=== PATIENT | male | born 1950 | race Caucasian/White ===

== ENCOUNTER 2016-05-07 15:45 | Emergency (ER) | payer MEDICARE, MEDICAID ==
[2016-05-07] VITALS (8 sets, daily range): BP systolic 82–108; BP diastolic 53–74; PULSE 68–86; RESP 10–20; O2SAT 95–99
[~2016-05-07 15:45] MED LIST: HYDR-3825 PO; IBUP-1827 PO; IBUP800T28 PO; METF1000 PO; METH750T3 PO; OXYC5CAP4 PO; PROP20TA5 PO; RIZA10TA23 PO
--- NOTE | 2016-05-07 16:02 | ED.REPORT ---
HPI-Trauma Minor / Fall Date of Service May 07, 2016 ED Provider: Patrica Emanuel MD A 65 year old male with a history of migraines, diabetes, and similar episodes is brought to the ED via EMS due to a ground level fall. The pt states that his "legs just got weak" and he fell before he was able to sit down. The pt states that he hit his face on a wall but denies loss of consciousness. He is now experiencing neck pain, left knee pain, and a headache, as well as fatigue immediately following the fall. The pt denies vision changes, weakness in arms or legs, nausea, or vomiting. Nursing Notes Stated Complaint: GROUND LEVEL FALL Chief Complaint: Multiple Trauma/Fall Nursing Notes Reviewed: Yes Allergies: Coded Allergies: No Known Allergies (Verified , 12/22/15) Scheduled Metformin (Glucophage) 1,000 Mg Tablet 1,000 MG PO BID Propranolol HCl (Propranolol HCl) 20 Mg Tablet 20 MG PO TID Rizatriptan ODT (Maxalt RESEARCH FELLOW) 10 Mg Tablet 10 MG PO every 2 hours Scheduled PRN Hydrocodone-Acetaminophen 7.5-325 mg (Hydrocodone-Acetaminophen 7.5-325 mg) 1 Each Tablet 1 TABLET PO Q6 PRN PRN For Pain Ibuprofen (Ibuprofen) 600 Mg Tablet 600 MG PO TID PRN PRN For Pain Ibuprofen (Ibuprofen) 800 Mg Tablet 800 MG PO TID PRN PRN For Pain Methocarbamol (Methocarbamol) 750 Mg Tablet 750 MG PO BID PRN PRN For Spasm oxyCODONE (oxyCODONE) 5 Mg Capsule 5 MG PO Q4H PRN PRN For Pain General Time Seen by MD: 15:59 Chief Complaint Fall Hx Obtained From: Patient, EMS Arrived By: Ambulance Onset Occurred: 1 - 4 hours ago Symptom Duration: Since onset Recent Healthcare: Recent doctor visit, Recent hospitalization Similar Sx Previous: No Past Medical History Past Medical History Chronic back pain Reports: Diabetes mellitus Reports: Migraines Past Surgical History rotator cuff 2x right ankle surgery Reports: Appendectomy, Tonsillectomy Reports: Back/neck surgery Smoking History Former Smoker Social History Drug Use: Denies drug use Other Social History: Local resident Occupation Followed by the [place] [facility] Status Independent Review of Systems Constitutional: Reports: Fatigue, Weakness - generalized (episodic), Denies: Chills, Fever Respiratory: Denies: Non-productive cough, Shortness of breath Musculoskeletal: Denies: Back pain, Neck pain Skin: Denies Rash Neurologic: Denies: Change LOC, Vision change Complete sys rev & neg: except as marked. Cardiovascular: Denies: Chest pain GI: Denies: Abdominal pain, Nausea, Vomiting Physical Exam Initial Vital Signs Vital Signs (First) Date Time Temp Pulse Resp B/P Pulse Ox O2 Delivery O2 Flow Rate FiO2 05/07/16 15:51 36.4 82 10 108/60 95 Room Air Initial VS: Reviewed, Vital signs abnormal General/Constitutional: Awake, Alert Neck: Atraumatic, Supple, Full range of motion generalized neck tenderness Head / Eyes: Normocephalic, PERRL, EOMI no signs of trauma to scalp no facial droop swelling and bruising to right upper eyelid, otherwise no signs of trauma to face ENT: Atraumatic, Airway patent Mouth: Positive: Mucous membranes dry Respiratory / Chest: Atraumatic, Breath sounds NL, Breath sounds = bilat, No respiratory distress Cardiovascular: Heart rate NL, Regular rhythm, Heart sounds NL Abdomen: Atraumatic, Soft, Non-tender Back: Atraumatic, Full range of motion Upper Extremity / MS: Atraumatic, Full range of motion Lower Extremity / Pelvis / MS: Atraumatic, Full range of motion no obvious deformity of left knee good range of motion no bruising slight swelling Skin: Atraumatic, Color NL, No rash, Warm, Dry Neurologic: Oriented X3, Speech NL, No motor deficits, No sensory deficits neuro grossly intact Psychiatric: Affect NL, Mood NL Interpretation & Diagnostics Lab Results Interpretation Result Diagram: 05/07/16 1701 05/07/16 1701 Test 05/07/16 17:01 White Blood Count 8.8th/mm3 (3.8-10.1) Red Blood Count 4.56mil/mm3 (4.40-5.80) Hemoglobin 15.1g/dL (13.8-17.2) Hematocrit 42.0% (41.0-50.0) Mean Corpuscular Volume 92.1fL (81-100) Mean Corpuscular Hemoglobin 33.1pg (27.0-35.0) Mean Corpuscular Hemoglobin Concent 36.0% (32.0-37.0) Red Cell Distribution Width 13.4% (12.3-15.4) Platelet Count 176bil/L (150-400) Neutrophils (%) (Auto) 60.1% (40-74) Lymphocytes (%) (Auto) 28.5% (14-46) Monocytes (%) (Auto) 7.3% (4-12) Eosinophils (%) (Auto) 3.3% (0-5) Basophils (%) (Auto) 0.6% (0-3) Sodium Level 132mEq/L (134-144) Potassium Level 4.3mEq/L (3.5-5.2) Chloride Level 95mEq/L (97-108) Carbon Dioxide Level 24mmol/L (18-29) Blood Urea Nitrogen 28mg/dL (8-27) Creatinine 0.57mg/dL (0.76-1.27) Estimat Glomerular Filtration Rate 152mL/min (>59) Glucose Level 356mg/dL (60-99) Calcium Level 10.0mg/dL (8.5-10.1) Magnesium Level 1.8mg/dL (1.6-2.6) Hold Ramirez Top Tube Received (Received) X-Ray C-Spine Interpretation IMPRESSION: No fracture. No acute osseous lesion. If there are persistent symptoms or continued clinical suspicion for pathology, then MRI should be considered for further evaluation. Dictated by: Susie Rosales MD, PhD on 05/07/2016 at 17:41 Approved by: Susie Rosales MD, PhD on 05/07/2016 at 17:41 Interpretation / Wet Read by: Interpret - Radiologist X-Ray Interpretation Xray Interpretation: IMPRESSION: No fracture. No acute osseous lesion. If there are persistent symptoms or clinical suspicion for pathology, then repeat radiographs or advanced imaging (CT, MRI or bone scan) should be considered for further evaluation. Dictated by: Susie Rosales MD, PhD on 05/07/2016 at 22:04 Approved by: Susie Rosales MD, PhD on 05/07/2016 at 22:04 X-Ray Ordered: Knee left Interpretation / Wet Read by: Interpret - Radiologist Xray Interpretation: IMPRESSION: No acute fracture. No acute osseous lesion. If there are persistent symptoms or clinical suspicion for pathology, then repeat radiographs or advanced imaging (CT, MRI or bone scan) should be considered for further evaluation. Dictated by: Susie Rosales MD, PhD on 05/07/2016 at 22:06 Approved by: Susie Rosales MD, PhD on 05/07/2016 at 22:06 X-Ray Ordered: Foot left Interpretation / Wet Read by: Interpret - Radiologist Re-Eval/Medical Decision Med Decision/Clinical Course Patient had a near syncopal episode which is likely due to dehydration. The patient is clinically dehydrated and shows prerenal azotemia on his BMP. Is given to half liters of normal saline after which he was no longer orthostatic. In speaking with the patient does not like to drink water he was encouraged to more fluids. We will also likely that he can decrease his blood pressure medication has really does not know what he is on. Upon discharge the patient complained of knee and ankle pain is not B Sabrina has good range of motion however he was very concerned and so x-rays were obtained and no fracture was seen. Source of Hx: Old records Re-Evaluation/Progress #1: Time of Eval: 16:53 Patient Status: Condition unchanged Re-Evaluation/Progress Note: Pt rechecked to reiterate need for IV start. Pt agrees to IV fluids. Re-Evaluation/Progress #2: Time of Eval: 20:30 Patient Status: Condition improved Re-Evaluation/Progress Note: Pt rechecked, whose condition has improved. He is informed of his radiology results and diagnosis, as well as the plan for discharge following the completion of fluids. The pt understands and agrees with the plan. All questions are addressed at this time. Re-Evaluation/Progress #3: Time of Eval: 21:14 Patient Status: Condition unchanged Re-Evaluation/Progress Note: Pt rechecked, who now reports pain in his left knee. Plan for x-ray is discussed. Re-Evaluation/Progress #4: Time of Eval: 22:17 Patient Status: Condition improved Re-Evaluation/Progress Note: Pt rechecked and informed of his radiology results. The plan for discharge is discussed. The pt understands and agrees with the plan. All questions are addressed at this time. Counseled Regarding: Diagnosis, Lab results, Need for follow-up, When/why to return to ED Discharge & Departure Impression: Primary Impression: Near syncope Additional Impression: Dehydration Disposition: Home Discharge Condition All VS Reviewed: Yes Condition: Stable Patient Instructions: Dehydration (ED), Syncope (ED) Additional Instructions: Work on drinking more fluids, even if you do not like the water at your apartment. [facility]. If you are able to cut your dose in half, do that in the meantime. Return to the emergency department if you develop new or worsening symptoms. Referrals: [facility] ([facility]) Scribe Attestation Portions of this note were transcribed by Sheba Kc. I, Dr. Emanuel personally performed the history, physical exam and medical decision-making; I reviewed and confirmed the accuracy of the information in the transcribed note. Signed by: Dante Blanchard, 05/07/2016, 22:20 copies [facility]: [facility] Patrica Emanuel MD May 07, 2016 16:02 SHEBA KC May 07, 2016 16:14
[2016-05-07] MEDS ORDERED: 0.9% Sodium Chloride 1,000 ML IV ONE ×2 (16:45→18:05)
[2016-05-07 17:16] LABS: BASOPHILS % (AUTO) 0.6 % (0-3); EOSINOPHILS % (AUTO) 3.3 % (0-5); MONOCYTES % (AUTO) 7.3 % (4-12); Mean Corpuscular Hemoglobin 33.1 pg (27.0-35.0); Mean Corpuscular Volume 92.1 fL (81-100); NEUTROPHILS % (AUTO) 60.1 % (40-74); Platelet Count 176 bil/L (150-400)
[2016-05-07 17:34] LABS: Magnesium 1.8 mg/dL (1.6-2.6)
--- NOTE | 2016-05-07 17:42 | DRSVH ---
PROCEDURE: X-RAY CERVICAL SPINE, 2 OR 3 VIEWS INDICATIONS: fall TECHNIQUE: 3 view(s) of the cervical spine were acquired. COMPARISON: [facility], CR, XR CERVICAL SPINE 2 OR 3VW, 12/22/2015, 3:01. FINDINGS: Bones: No fractures or dislocations to the C7 level. Cervicothoracic junction is not visualized. The lateral masses of C1 appear intact on the odontoid view. No suspicious bony lesions. Multilevel deg enerative changes. Multilevel facet arthropathy. Soft tissues: No prevertebral soft tissue swelling. Atherosclerotic ossifications noted in the left carotid artery. IMPRESSION: No fracture. No acute osseous lesion. If there are persistent symptoms or continued clin ical suspicion for pathology, then MRI should be considered for further evaluation. Dictated by: Susie Rosales MD, PhD on 05/07/2016 at 17:41 Approved by: Susie Rosales MD, PhD on 05/07/2016 at 17:41
[2016-05-07] MEDS ORDERED: 0.9% Sodium Chloride 500 ML IV ONE (19:30)
--- NOTE | 2016-05-07 22:06 | DRSVH ---
PROCEDURE: X-RAY LEFT KNEE, THREE VIEWS ([id number]) INDICATIONS: fall TECHNIQUE: 3 views of the knee were acquired. COMPARISON: None. FINDINGS: Bones: No fractures or dislocations. No suspicious bony lesions. The tricompartment osteoarthritic degenerative changes are noted. Soft tissues: No joint effusion. Vascular calcifications noted. Chondrocalcinosis noted. IMPRESSION: No fracture. No acute osseous lesion. If there are persistent symptoms or clinical suspi cion for pathology, then repeat radiographs or advanced imaging (CT, MRI or bone scan) should be cons idered for further evaluation. Dictated by: Susie Rosales MD, PhD on 05/07/2016 at 22:04 Approved by: Susie Rosales MD, PhD on 05/07/2016 at 22:04
--- NOTE | 2016-05-07 22:07 | DRSVH ---
PROCEDURE: X-RAY LEFT FOOT COMPLETE, MINIMUM THREE VIEWS ([id number]) INDICATIONS: pain TECHNIQUE: 3 views of the foot were acquired. COMPARISON: None. FINDINGS: Bones: No acute fractures or dislocations. Deformity of distal aspect of fifth metatarsal likely rel ated to fracture which has healed in slight deformity. No suspicious bony lesions. Soft tissues: No tibiotalar joint effusion. Achilles tendon appears normal. IMPRESSION: No acute fracture. No acute osseous lesion. If there are persistent symptoms or clinical suspicion for pathology, then repeat radiographs or advanced imaging (CT, MRI or bone scan) should b e considered for further evaluation. Dictated by: Susie Rosales MD, PhD on 05/07/2016 at 22:06 Approved by: Susie Rosales MD, PhD on 05/07/2016 at 22:06
== END 2016-05-07 22:33 | disposition home or self-care (01) ==
LOC: SED 15:45 → EDBD 15:45 → SED 22:33
DX: R55 Syncope and collapse (principal); W18.39XA Other fall on same level, initial encounter; Y93.89 Activity, other specified; Y92.89 Other specified places as the place of occurrence of the external cause; Y99.8 Other external cause status; E86.0 Dehydration; M54.2 Cervicalgia; M25.562 Pain in left knee; R51 Headache; R53.83 Other fatigue; E11.9 Type 2 diabetes mellitus without complications; Z87.891 Personal history of nicotine dependence; Z79.84 Long term (current) use of oral hypoglycemic drugs
CPT/HCPCS: 36415; 72040; 73562; 73630; 80048; 82948; 83735; 85025; 96360; 96361; 99285; J7030; J7040

== ENCOUNTER 2016-06-02 01:48 | Emergency (ER) | payer MEDICARE, MEDICAID ==
[~2016-06-02] VITALS: Ht 182.9 cm; Wt 84.1 kg
[2016-06-02 02:17] VITALS: BP 123/84; PULSE 100; RESP 18; O2SAT 100
--- NOTE | 2016-06-02 03:14 | ED.REPORT ---
HPI-General Illness Date of Service Jun 02, 2016 ED Provider: Kenny Miguel MD Mr. Hoang is a 65 y/o man who presents today for eye pain and lightheadedness and generalized aching. He hit his head into a wall 3-4 weeks ago. For the past 1 week, he had been cleaning his apartment and refilling a container of bleach cleaning solution when it was being transferred from one container to another. He felt it splash in his face and went immediately into the shower. He now has dry, painful eyes and can't sleep because of it. He was moving things around and now a sharp pain in back and heard a crack and his right knee gave out. He also was wobbling "like I was drunk." He hasn't checked his blood sugar today. Nursing Notes Stated Complaint: EYE PAIN Chief Complaint: General Complaint Allergies: Coded Allergies: No Known Allergies (Verified , 12/22/15) Scheduled Metformin (Glucophage) 1,000 Mg Tablet 1,000 MG PO BID Propranolol HCl (Propranolol HCl) 20 Mg Tablet 20 MG PO TID Rizatriptan ODT (Maxalt FLOWER STRIPPER) 10 Mg Tablet 10 MG PO every 2 hours Scheduled PRN Hydrocodone-Acetaminophen 7.5-325 mg (Hydrocodone-Acetaminophen 7.5-325 mg) 1 Each Tablet 1 TABLET PO Q6 PRN PRN For Pain Ibuprofen (Ibuprofen) 600 Mg Tablet 600 MG PO TID PRN PRN For Pain Ibuprofen (Ibuprofen) 800 Mg Tablet 800 MG PO TID PRN PRN For Pain Methocarbamol (Methocarbamol) 750 Mg Tablet 750 MG PO BID PRN PRN For Spasm oxyCODONE (oxyCODONE) 5 Mg Capsule 5 MG PO Q4H PRN PRN For Pain General Time Seen by MD: 02:53 Chief Complaint Other (eye pain) Hx Obtained From: Patient Arrived By: Walk-in Past Medical History Past Medical History Chronic back pain Reports: Diabetes mellitus Reports: Migraines Past Surgical History rotator cuff 2x right ankle surgery Reports: Appendectomy, Tonsillectomy Reports: Back/neck surgery Smoking History Former Smoker Social History Alcohol Use: Denies alcohol use Drug Use: Denies drug use Other Social History: Local resident Occupation Followed by the [place] [facility] Status Independent Review of Systems Full Review of Systems Eyes: Reports: Blurred bilateral, Eye pain bilateral, Redness bilateral Respiratory: Denies: Shortness of breath Cardiovascular: Denies: Chest pain GI: Denies: Constipation, Diarrhea, Vomiting Male: Denies Dysuria, Denies Hematuria Musculoskeletal: Reports: Back pain, Joint pain Hematologic: Denies Bleeding Neurologic: Reports: Headache, Lightheaded, Problem walking, Denies: Bladder dysfunction, Bowel dysfunction, Numbness, Slurred speech, Unable to speak Psychiatric: Denies: Change mental status Physical Exam Vital Signs Vital Signs Date Time Temp Pulse Resp B/P Pulse Ox O2 Delivery O2 Flow Rate FiO2 06/02/16 05:27 35.9 98 18 133/90 94 Room Air 06/02/16 02:17 36.8 100 18 123/84 100 Room Air Initial VS: Reviewed Head / Eyes: Atraumatic, Normocephalic ENT: Mucous membranes moist, Conjunctiva normal, No scleral icterus Neck: Supple, Non-tender, Full range of motion Respiratory: Breath sounds normal, Clear to auscultation, No respiratory distress Cardiovascular: Regular rate & rhythm, Heart sounds normal, Intact distal pulses Abdomen / GI: Soft, Non-tender, No guarding, No rebound, No distention Extremities: Vascular intact, Neuro intact, No swelling, No tenderness Skin: Warm, Dry Neurologic: Alert, Oriented, Nonfocal Psychiatric: Mood/affect normal, Behavior normal, Normal thought content General/Constitutional: Awake, Alert, No acute distress Head / Eyes: PERRL, EOMI, No photophobia, No scleral icterus, No corneal abrasion, Fundi NL, Visual acuity NL (R 20/30, L 20/30, Both 20/25) Conjunctiva / Sclera: Positive: Injected left, Injected right Neurologic: Oriented X3, Speech NL, No motor deficits, No sensory deficits, CN II - XII intact Interpretation & Diagnostics Lab Results Interpretation Result Diagram: 06/02/16 0401 06/02/16 0401 Test 06/02/16 04:01 White Blood Count 8.8th/mm3 (3.8-10.1) Red Blood Count 4.54mil/mm3 (4.40-5.80) Hemoglobin 15.0g/dL (13.8-17.2) Hematocrit 41.4% (41.0-50.0) Mean Corpuscular Volume 91.2fL (81-100) Mean Corpuscular Hemoglobin 33.0pg (27.0-35.0) Mean Corpuscular Hemoglobin Concent 36.2% (32.0-37.0) Red Cell Distribution Width 13.5% (12.3-15.4) Platelet Count 175bil/L (150-400) Neutrophils (%) (Auto) 45.1% (40-74) Lymphocytes (%) (Auto) 39.9% (14-46) Monocytes (%) (Auto) 10.1% (4-12) Eosinophils (%) (Auto) 3.9% (0-5) Basophils (%) (Auto) 0.9% (0-3) Sodium Level 135mEq/L (134-144) Potassium Level 4.1mEq/L (3.5-5.2) Chloride Level 99mEq/L (97-108) Carbon Dioxide Level 22mmol/L (18-29) Blood Urea Nitrogen 11mg/dL (8-27) Creatinine 0.54mg/dL (0.76-1.27) Estimat Glomerular Filtration Rate 162mL/min (>59) Glucose Level 302mg/dL (60-99) Calcium Level 9.1mg/dL (8.5-10.1) Total Bilirubin 0.5mg/dL (0.0-1.2) Aspartate Amino Transf (AST/SGOT) 14U/L (0-50) Alanine Aminotransferase (ALT/SGPT) 15U/L (0-44) Alkaline Phosphatase 69U/L (25-160) Total Protein 6.8g/dL (6.4-8.4) Albumin 4.0g/dL (3.4-5.0) Hold Ramirez Top Tube Received (Received) Procedures Slit Lamp Exam Wood's lamp exam done for bilateral eyes with fluorescein staining Time: 05:00 Procedure Performed by: ED physician, ED resident Which Eye: Both Dilating Agent & Anesthesia: Anesthesia: Tetracaine Eyelid / Conjunctiva / Sclera: Eyelid(s) normal Cornea/Ant Chamber/Iris/Lens: Cornea normal Re-Eval/Medical Decision Med Decision/Clinical Course 1. bilateral eye pain -No fluorescein uptake bilaterally -Visual acuity left 20/30, right 20/30, bilateral 20/25 Discharge & Departure Primary Impression: Irritation of both eyes Disposition: Home Discharge Condition All VS Reviewed: Yes Condition: Stable Patient Instructions: [facility] (DC) Additional Instructions: It is likely that you irritated your eyes when you were transferring the cleaning chemical into a container. The eye exam done today in the emergency department did not show any injury to the cornea of the eye. You are given a prescription for flurbiprofen eye drops for pain. You can place 1 drop in each eye up to 4 drops per eye in 1 day. Follow up with your eye doctor for further evaluation in the next 1-4 days. Follow up with your primary care provider in 1 week. [facility] 1 Week Attending Statement The patient was seen and examined together with Dr. Gina Renee and I agree with the history, exam and plan as outlined in the note above. copies [facility]: [facility] Gina Renee DO Jun 02, 2016 03:13 Kenny Miguel MD Jun 02, 2016 13:30
[2016-06-02] MEDS ORDERED: Tetracaine 0.5% 4 mL Ophthalmic Solution BOTH_EYES ONE (03:35)
[2016-06-02] MEDS ORDERED: Fluorescein 0.6 mg Ophthalmic Strip BOTH_EYES ONE (03:35)
[2016-06-02 04:07] LABS: BASOPHILS % (AUTO) 0.9 % (0-3); EOSINOPHILS % (AUTO) 3.9 % (0-5); MONOCYTES % (AUTO) 10.1 % (4-12); Mean Corpuscular Volume 91.2 fL (81-100); NEUTROPHILS % (AUTO) 45.1 % (40-74); Platelet Count 175 bil/L (150-400)
[2016-06-02 05:27] VITALS: BP 133/90; PULSE 98; RESP 18; O2SAT 94
[2016-06-02] MEDS ORDERED: _Flurbiprofen 0.03% Oph Soln 2.5 mL AFFECT_EYE SCH (05:30)
== END 2016-06-02 05:28 | disposition home or self-care (01) ==
LOC: SED 01:48
DX: H57.8 Other specified disorders of eye and adnexa (principal); R42 Dizziness and giddiness; E11.9 Type 2 diabetes mellitus without complications; Z79.84 Long term (current) use of oral hypoglycemic drugs; Z87.891 Personal history of nicotine dependence

== ENCOUNTER 2016-06-06 02:41 | Emergency (ER) | payer MEDICARE, MEDICAID ==
[~2016-06-06] VITALS: Ht 182.9 cm; Wt 34.1 kg
--- NOTE | 2016-06-06 02:43 | ED.REPORT ---
HPI-General Illness Date of Service Jun 06, 2016 ED Provider: Rufino Franco MD Patient is a 65 year old male with a history of diabetes mellitus and chronic back pain who presents to the ED vis EMS with right sided chest pain after reaching behind his couch to unplug a cord this evening. He reports the sensation that someone "hit me across the chest with a 2x4". Patient reports increased pain with movement or going over bumps in the road. He also reports pain with deep breath. The patient states that the last time he sustained an injury of of this character, the physician massaged this area of his chest and "popped things back into place". Patient denies any shortness of breath or sustaining other injuries. Nursing Notes Stated Complaint: R SIDED CHEST PAIN Nursing Notes Reviewed: Yes Allergies: Coded Allergies: No Known Allergies (Verified , 12/22/15) Scheduled Metformin (Glucophage) 1,000 Mg Tablet 1,000 MG PO BID Pantoprazole DR (Protonix) 40 Mg Tablet 40 MG PO DAILY Propranolol HCl (Propranolol HCl) 20 Mg Tablet 20 MG PO TID Rizatriptan ODT (Maxalt PUPIL PERSONNEL SERVICES DIRECTOR) 10 Mg Tablet 10 MG PO every 2 hours Scheduled PRN Hydrocodone-Acetaminophen 7.5-325 mg (Hydrocodone-Acetaminophen 7.5-325 mg) 1 Each Tablet 1 TABLET PO Q6 PRN PRN For Pain Ibuprofen (Ibuprofen) 600 Mg Tablet 600 MG PO TID PRN PRN For Pain Ibuprofen (Ibuprofen) 800 Mg Tablet 800 MG PO TID PRN PRN For Pain Methocarbamol (Methocarbamol) 750 Mg Tablet 750 MG PO BID PRN PRN For Spasm Naproxen (Naprosyn) 500 Mg Tablet 500 MG PO BID PRN PRN For Pain oxyCODONE (oxyCODONE) 5 Mg Capsule 5 MG PO Q4H PRN PRN For Pain General Time Seen by MD: 02:43 Chief Complaint Chest pain Hx Obtained From: Patient Arrived By: Walk-in Sudden in Onset?: No Onset Occurred: 1 - 4 hours ago Symptom Duration: Since onset Location: : Chest Quality: Painful Severity: Current: Moderate Severity: Maximum: Moderate Recent Healthcare: No recent doctor visit, No recent hospitalization Similar Sx Previous: No Past Medical History Past Medical History Chronic back pain Reports: Diabetes mellitus Reports: Migraines Past Surgical History rotator cuff 2x right ankle surgery Reports: Appendectomy, Tonsillectomy Reports: Back/neck surgery Smoking History Former Smoker Social History Alcohol Use: Denies alcohol use Drug Use: Denies drug use Other Social History: Good social support, Local resident Occupation [facility] Status Independent Review of Systems Full Review of Systems Respiratory: Denies: Non-productive cough, Shortness of breath Cardiovascular: Reports: Chest pain, Denies: Dyspnea on exertion Complete sys rev & neg: except as marked. Physical Exam Vital Signs Vital Signs Date Time Temp Pulse Resp B/P Pulse Ox O2 Delivery O2 Flow Rate FiO2 06/06/16 04:51 94 16 106/48 100 Room Air 06/06/16 02:45 36.6 75 16 105/69 97 Room Air Initial VS: Reviewed Head / Eyes: Atraumatic, Normocephalic, PERRL ENT: Conjunctiva normal, No scleral icterus Extremities: Vascular intact, Neuro intact, No swelling Skin: Warm, Dry, No cyanosis Neurologic: Alert, Oriented, Nonfocal Psychiatric: Mood/affect normal, Behavior normal, Normal thought content General/Constitutional: Awake, Alert, No acute distress Appearance / Presentation: Positive: Obese malodorous Neck: Supple, Full range of motion Respiratory / Chest: Breath sounds NL, Breath sounds = bilat, No respiratory distress, No rales, No rhonchi, No wheezing, No crepitus Chest Wall / Ribs: Positive: Chondral cartil tender R Cardiovascular: Heart rate NL, Regular rhythm, No gallop, No murmurs, No rubs Interpretation & Diagnostics ECG Interpretation ECG Interpretation: Sinus rhythm, Rate 91 Inferior infarct, old Poor R wave progression Time: 03:10 Interpreted by: ED physician Normal ECG Interpretation: No acute ischemic changes, No change from prior ECGs X-Ray Interpretation Xray Interpretation: Impression: No acute fracture. Study Performed: X-ray Ribs Interpretation / Wet Read by: Wet read ED physician Re-Eval/Medical Decision Med Decision/Clinical Course 65-year-old rib pain after trivial episode trying to unclog record. No evidence of fracture or pneumothorax. Naprosyn for pain relief. Discharged in stable condition. Source of Hx: Old records Time of Eval: 04:01 Patient Status: Condition improved Re-Evaluation/Progress Note: Rechecked the patient, who was informed that his EKG and chest x-ray were normal. This is likely a musculoskeletal injury. Patient understands and agrees with the plan to be discharged home. Discharge instructions and follow-up discussed. All questions were addressed. Return to the ED warnings given. Counseled Regarding: Diagnosis, Need for follow-up, When/why to return to ED Discharge & Departure Primary Impression: Chest wall pain Additional Impression: Costochondritis Disposition: Home Discharge Condition All VS Reviewed: Yes Condition: Stable Patient Instructions: Costochondritis (ED) Additional Instructions: We do not see any evidence of fracture on the x-rays, but small fractures are frequently invisible on x-ray. Rib strain is treated the same as a fracture and the presence or absence of a fracture does not much matter. We recommend Deep breathing with the incentive spirometer every half hour or so to prevent atelectasis(collapse of the lung) Naprosyn twice daily. Protonix once daily as long as you are on Naprosyn. [facility] Martinibe Attestation Portions of this note were transcribed by Cynthia Wilson. I, Dr. Franco personally performed the history, physical exam and medical decision-making; I reviewed and confirmed the accuracy of the information in the transcribed note. Signed by: Dante Madrid, 06/06/2016 0402 copies to: [facility] Rufino Franco MD Jun 06, 2016 02:43 Cynthia Wilson Jun 06, 2016 02:58
[2016-06-06 02:45] VITALS: BP 105/69; PULSE 75; RESP 16; O2SAT 97
[2016-06-06] MEDS ORDERED: Ketorolac 30 mg/mL 2 mL Inj IM ONE (03:00)
[2016-06-06] MEDS ORDERED: PANT40TA2 PO (03:38)
[2016-06-06] MEDS ORDERED: NAPR500T PO (03:38)
[2016-06-06 04:51] VITALS: BP 106/48; PULSE 94; RESP 16; O2SAT 100
--- NOTE | 2016-06-06 08:53 | DRSVH ---
PROCEDURE: X-RAY RIGHT RIBS INCLUDEING PA CHEST, MINUMUM THREE VIEWS ([id number]) INDICATIONS: poss fx TECHNIQUE: 3 views of the right ribs were acquired, along with a single view chest. COMPARISON: [facility], CR, XR CHEST 1VW (PORTABLE), 12/22/2015, 3:01. FINDINGS: Surgical changes and devices: None. Bones and chest wall: No fractures or dislocations. No suspicious bony lesions. Overlying soft tis sues appear unremarkable. Lungs and pleura: No pleural effusions or pneumothorax. Lungs appear clear, aside from minimal pres umed atelectasis versus scarring at the left lung base.. Mediastinum: Mediastinal contours appear normal. Heart size is normal. IMPRESSION: No displaced right rib fractures. Dictated by: Dieter NICOLE Interpreted: Randy Ellis MD on 06/06/2016 at 8:52 Transcribed by: SLADE on 06/06/2016 at 8:53 Approved by: Samir Ellis M.D. on 06/06/2016 at 9:28
== END 2016-06-06 04:58 | disposition home or self-care (01) ==
LOC: SED 02:41
DX: M94.0 Chondrocostal junction syndrome [Tietze] (principal); X50.1XXA Overexertion from prolonged static or awkward postures, initial encounter; Y92.009 Unspecified place in unspecified non-institutional (private) residence as the place of occurrence of the external cause; Y93.89 Activity, other specified; Y99.8 Other external cause status; E11.9 Type 2 diabetes mellitus without complications; M54.9 Dorsalgia, unspecified; G89.29 Other chronic pain; Z87.891 Personal history of nicotine dependence; Z79.84 Long term (current) use of oral hypoglycemic drugs

== ENCOUNTER 2016-06-21 15:00 | Emergency (ER) | payer MEDICARE, MEDICAID ==
[~2016-06-21] VITALS: Ht 182.9 cm; Wt 84.1 kg
[~2016-06-21 15:00] MED LIST changes: +NAPR500T PO; +PANT40TA2 PO
[2016-06-21 15:05] VITALS: BP 139/79; PULSE 103; RESP 16; O2SAT 97
--- NOTE | 2016-06-21 17:38 | ED.REPORT ---
HPI-Extremity Problem Upper Date of Service Jun 21, 2016 ED Provider: Mustapha Holland PA-C 65-year-old male with a history of diabetes presents with chief complaint of left shoulder pain. He states that 2 days ago he slipped and fell and struck his shoulder against the side of his Jeep. The pain is aggravated by turning his head, lifting his arm. Denies numbness, tingling in the limb. Patient also complains of right lower back pain without radiation. This is a familiar pain to him that became worse this morning. Admits history of diabetes and a remote L5-S1 fusion, denies fever, history of cancer, IV drug use, recent infection, recent surgery, immunosuppression. Nursing Notes Stated Complaint: BACK AND SHOULDER PAIN Chief Complaint: Back Pain or Injury Nursing Notes Reviewed: Yes Allergies: Coded Allergies: No Known Allergies (Verified , 12/22/15) Scheduled Metformin (Glucophage) 1,000 Mg Tablet 1,000 MG PO BID Pantoprazole DR (Protonix) 40 Mg Tablet 40 MG PO DAILY Propranolol HCl (Propranolol HCl) 20 Mg Tablet 20 MG PO TID Rizatriptan ODT (Maxalt SHEET METAL FOREMAN) 10 Mg Tablet 10 MG PO every 2 hours Scheduled PRN Acetaminophen (Acetaminophen) 500 Mg Tablet 1,000 MG PO Q6H PRN PRN For Pain Hydrocodone-Acetaminophen 7.5-325 mg (Hydrocodone-Acetaminophen 7.5-325 mg) 1 Each Tablet 1 TABLET PO Q6 PRN PRN For Pain Ibuprofen (Ibuprofen) 600 Mg Tablet 600 MG PO TID PRN PRN For Pain Ibuprofen (Ibuprofen) 800 Mg Tablet 800 MG PO TID PRN PRN For Pain Ibuprofen (Ibuprofen) 800 Mg Tablet 800 MG PO QID PRN PRN For Pain Methocarbamol (Methocarbamol) 750 Mg Tablet 750 MG PO BID PRN PRN For Spasm Naproxen (Naprosyn) 500 Mg Tablet 500 MG PO BID PRN PRN For Pain oxyCODONE (oxyCODONE) 5 Mg Capsule 5 MG PO Q4H PRN PRN For Pain General Time Seen by MD: 17:13 Chief Complaint Shoulder injury left Past Medical History Past Medical History Chronic back pain Reports: Diabetes mellitus Reports: Migraines Past Surgical History rotator cuff 2x right ankle surgery Reports: Appendectomy, Tonsillectomy Reports: Back/neck surgery Smoking History Former Smoker Social History Alcohol Use: Denies alcohol use Drug Use: Denies drug use Other Social History: Good social support, Local resident Occupation [facility] Status Independent Review of Systems Negative unless stated otherwise in history of present illness Physical Exam General: Well appearing, well developed, well nourished, no acute distress. Left shoulder: normal to inspection, mildly tender over the full length of the clavicle as well as trapezius muscle. Back: Small midline scar consistent with L5 S1 laminectomy surgery. No midline spinous process tenderness. Mild right SI joint tenderness. No redness, swelling, warmth. Head: Atraumatic, normocephalic. Eyes: No scleral icterus or injection. No discharge. Vision grossly intact. ENT: Voice clear, hearing grossly intact. Skin: Warm and dry. Neurological: Normal gait, Romberg. Can stand on his toes and heels, but only briefly. Grossly nonfocal. Psychological: alert and oriented. Speech appropriate, linear and logical. Behavior appropriate. Initial Vital Signs Vital Signs (First) Date Time Temp Pulse Resp B/P Pulse Ox O2 Delivery O2 Flow Rate FiO2 06/21/16 15:05 36.3 103 16 139/79 97 Room Air Initial VS: Reviewed, Vital signs abnormal (mild tachycardia) Re-Eval/Medical Decision Med Decision/Clinical Course 55-year-old male who is a frequent ED visitor presents chief complaint of left shoulder pain as well as right lower back pain. Slipped and hit his shoulder against the door of his Jeep. He also reports his lower back has been bothering him since this morning. Physical exam is reassuring with no deformity to the shoulder and the patient is easily able to remove his shirt when asked. Mild tenderness over the length of the clavicle. I believe this is soft tissue contusion as opposed to a fracture or dislocation. I discussed this with the patient and he agrees. His back pain is chronic and usual for him. He shows no neurological deficits or signs of abscess or cauda equina syndrome. I advised ibuprofen, acetaminophen and warm compresses as well as rest. Provided primary care follow-up referral and gave return precautions. Discharge & Departure Impression: Primary Impression: Contusion of shoulder, left Encounter type: initial encounter Qualified Code: S40.012A - Contusion of left shoulder, initial encounter Additional Impression: Low back pain Chronicity: chronic Back pain laterality: right Sciatica presence: without sciatica Qualified Code: M54.5 - Low back pain Disposition: Home Discharge Condition All VS Reviewed: Yes Condition: Stable Patient Instructions: Contusions in Adults (ED) Additional Instructions: Evaluation for left shoulder pain in the emergency department. Based on your history and my examination, I think is very unlikely that there is a fracture in your shoulder. I also do not believe that there is any damage to the nerves. I think your pain is most likely result of a contusion, which is a soft tissue injury caused by a blow to the shoulder. He had a secondary complaint of right lower back pain. I feel it is unlikely that this is caused by a dangerous condition such as swelling in your spine or infection. I think this is likely an aggravation of your chronic lower back pain. The treatment for both her lower back and her shoulder will be the same. I recommended 800 mg of Profen (Motrin) (taken every 6 hours. I recommended that you add 1000 mg of medicine (Tylenol) to that every 6 hours if you need a more pain relief. Rest and allow your back and shoulder to heal. Warm compresses will likely be helpful in relaxing the muscles. I will provide you with a referral for primary care follow-up, please contact them if the condition does not improve significantly in a week or so. Return to emergency department for any new or worsening symptoms including loss of control of her bowels, numbness between her legs, increasing pain, new numbness/weakness. [facility] Res[facility] EDSupervising Provider for APC: Iker Viera MD [facility]: [facility]; [facility] Mustapha Holland PA-C Jun 21, 2016 17:38
[2016-06-21] MEDS ORDERED: IBUP800T28 PO (17:53)
[2016-06-21] MEDS ORDERED: ACET-171 PO (17:53)
== END 2016-06-21 18:11 | disposition home or self-care (01) ==
LOC: SED 15:00
DX: S40.012A Contusion of left shoulder, initial encounter (principal); W01.198A Fall on same level from slipping, tripping and stumbling with subsequent striking against other object, initial encounter; Y92.9 Unspecified place or not applicable; Y93.89 Activity, other specified; Y99.8 Other external cause status; M54.5 Low back pain; G89.29 Other chronic pain; E11.9 Type 2 diabetes mellitus without complications; Z98.1 Arthrodesis status; Z87.891 Personal history of nicotine dependence

== ENCOUNTER 2016-09-15 21:55 | Emergency (ER) | payer MEDICARE, MEDICAID ==
[~2016-09-15] VITALS: Ht 185.4 cm; Wt 79.5 kg
[~2016-09-15 21:55] MED LIST changes: +ACET-171 PO
[2016-09-15 21:58] VITALS: BP 130/79; PULSE 91; RESP 16; O2SAT 94
[2016-09-15 23:25] LABS: MONOCYTES % (AUTO) 8.4 % (4-12); Mean Corpuscular Hemoglobin 32.1 pg (27.0-35.0); Mean Corpuscular Volume 91.9 fL (81-100); NEUTROPHILS % (AUTO) 55.1 % (40-74); Platelet Count 199 bil/L (150-400)
[2016-09-15 23:26] LABS: BASOPHILS % (AUTO) 1.1 % (0-3)
[2016-09-15 23:44] LABS: Magnesium 2.1 mg/dL (1.6-2.6); TROPONIN T 0.01 ug/L (0.0-0.011)
--- NOTE | 2016-09-16 00:10 | ED.REPORT ---
HPI-General Illness Date of Service September 16, 2016 ED Provider: Rufino Franco MD 65 year old male with a history of chronic back pain, back surgery, and rotator cuff repair presents to the ER complaining of two weeks of ongoing severe left arm pain. He also reports severe pain throughout his back and lower extremities described as similar to arthritic pain. No history of osteoarthritis and rheumatoid arthritis diagnoses. Patient is a regular ER visitor. Nursing Notes Stated Complaint: LEFT ARM PAIN,CHEST PAIN Chief Complaint: General Complaint Nursing Notes Reviewed: Yes Allergies: Coded Allergies: No Known Allergies (Verified , 09/15/16) Scheduled Metformin (Glucophage) 1,000 Mg Tablet 1,000 MG PO BID Pantoprazole DR (Protonix) 40 Mg Tablet 40 MG PO DAILY Propranolol HCl (Propranolol HCl) 20 Mg Tablet 20 MG PO TID Rizatriptan ODT (Maxalt PUBLIC HEALTH CLINICAL NURSE SPECIALIST) 10 Mg Tablet 10 MG PO every 2 hours Scheduled PRN Acetaminophen (Acetaminophen) 500 Mg Tablet 1,000 MG PO Q6H PRN PRN For Pain Hydrocodone-Acetaminophen 7.5-325 mg (Hydrocodone-Acetaminophen 7.5-325 mg) 1 Each Tablet 1 TABLET PO Q6 PRN PRN For Pain Ibuprofen (Ibuprofen) 600 Mg Tablet 600 MG PO TID PRN PRN For Pain Ibuprofen (Ibuprofen) 800 Mg Tablet 800 MG PO TID PRN PRN For Pain Ibuprofen (Ibuprofen) 800 Mg Tablet 800 MG PO QID PRN PRN For Pain Methocarbamol (Methocarbamol) 750 Mg Tablet 750 MG PO BID PRN PRN For Spasm Naproxen (Naprosyn) 500 Mg Tablet 500 MG PO BID PRN PRN For Pain Naproxen (Naprosyn) 500 Mg Tablet 500 MG PO BID PRN PRN For Pain oxyCODONE (oxyCODONE) 5 Mg Capsule 5 MG PO Q4H PRN PRN For Pain General Time Seen by : 00:09 Chief Complaint Other (Left Arm Pain) Hx Obtained From: Patient Arrived By: Walk-in Sudden in Onset?: No Onset Occurred: More than a week ago... (2 weeks) Symptom Duration: Since onset Location: : Arm left: Back: Leg left: Leg right Quality: Painful Severity: Current: Moderate Severity: Maximum: Moderate Pertinent Negative: Pt denies other symptoms Recent Healthcare: Recent doctor visit Similar Sx Previous: Yes Past Medical History Past Medical History Chronic back pain Reports: Diabetes mellitus Reports: Migraines Past Surgical History rotator cuff 2x right ankle surgery Reports: Appendectomy, Tonsillectomy Reports: Back/neck surgery Smoking History Former Smoker Social History Alcohol Use: Denies alcohol use Drug Use: Denies drug use Other Social History: Good social support, Local resident Occupation Followed by the [place] [facility] Status Independent Review of Systems Full Review of Systems Constitutional: Denies: Chills, Fever GI: Denies: Nausea, Vomiting Musculoskeletal: Reports: Back pain, Extremity pain, Joint pain, Lumbar pain, Denies: Neck pain Neurologic: Denies: Headache Complete sys rev & neg: except as marked. Physical Exam Vital Signs Vital Signs Date Time Temp Pulse Resp B/P Pulse Ox O2 Delivery O2 Flow Rate FiO2 09/16/16 01:48 95 16 133/87 96 Room Air 09/15/16 21:58 36.3 91 16 130/79 94 Room Air Initial VS: Reviewed General/Constitutional: Well-developed, Well-nourished Head / Eyes: Atraumatic, Normocephalic Neck: Supple, Non-tender, Full range of motion Skin: Warm, Dry, No cyanosis Neurologic: Alert, Oriented, Nonfocal Respiratory / Chest: Breath sounds NL, No respiratory distress, No rales, No rhonchi, No wheezing Cardiovascular: Heart rate NL, Regular rhythm, Heart sounds NL, Cap refill not delayed, Peripheral circulation NL Upper Extremities Upper Extremity / MS: Full range of motion, No deformity, Neurologic intact, Vascular intact Wrist / Hand: Full range of motion, Neurologic intact, Vascular intact Swelling of interdigital areas between MCP's, bilateral hands. Lower Extremity / Pelvis / MS: Full range of motion, No deformity, Neurologic intact, Vascular intact Interpretation & Diagnostics Lab Results Interpretation Result Diagram: 09/15/16225109/15/16 225 Test 09/15/16 22:52 White Blood Count 11.1th/mm3 (3.8-10.1) Red Blood Count 4.70mil/mm3 (4.40-5.80) Hemoglobin 15.1g/dL (13.8-17.2) Hematocrit 43.2% (41.0-50.0) Mean Corpuscular Volume 91.9fL (81-100) Mean Corpuscular Hemoglobin 32.1pg (27.0-35.0) Mean Corpuscular Hemoglobin Concent 35.0% (32.0-37.0) Red Cell Distribution Width 14.0% (12.3-15.4) Platelet Count 199bil/L (150-400) Neutrophils (%) (Auto) 55.1% (40-74) Lymphocytes (%) (Auto) 31.4% (14-46) Monocytes (%) (Auto) 8.4% (4-12) Eosinophils (%) (Auto) 4.0% (0-5) Basophils (%) (Auto) 1.1% (0-3) Band Neutrophils % 0% (1-5) Erythrocyte Sedimentation Rate 10mm/hr (0-30) Sodium Level 131mEq/L (134-144) Potassium Level 3.7mEq/L (3.5-5.2) Chloride Level 97mEq/L (97-108) Carbon Dioxide Level 19mmol/L (18-29) Blood Urea Nitrogen 17mg/dL (8-27) Creatinine 0.70mg/dL (0.76-1.27) Estimat Glomerular Filtration Rate 120mL/min (>59) Glucose Level 325mg/dL (60-99) Calcium Level 9.2mg/dL (8.5-10.1) Magnesium Level 2.1mg/dL (1.6-2.6) Total Bilirubin 0.4mg/dL (0.0-1.2) Aspartate Amino Transf (AST/SGOT) 13U/L (0-50) Alanine Aminotransferase (ALT/SGPT) 18U/L (0-44) Alkaline Phosphatase 83U/L (25-160) Troponin T 0.010ug/L (0.0-0.011) Total Protein 7.2g/dL (6.4-8.4) Albumin 4.2g/dL (3.4-5.0) Lipase 44U/L (13-60) Hold Ramirez Top Tube Received (Received) ECG Interpretation ECG Interpretation: Sinus rhythm, rate 95 Probable left atrial enlargement Old inferior infarct Time: 01:26 Interpreted by: ED physician X-Ray Interpretation Xray Interpretation: Osteoarthritic changes. X-Ray Ordered: Hand right, Hand left Interpretation / Wet Read by: Wet read ED physician Re-Eval/Medical Decision Med Decision/Clinical Course 65-year-old with multiple ER presentations with a right complaints, presents with generalized aches and joint aches particularly. No injury no fever or no other associated symptoms to suggest systemic illness. Sedimentation rate is unremarkable and a rheumatoid factor and an air pending. CBC is unremarkable. X-rays of the hands do not reveal any erosive changes. He is not currently on nonsteroidal, although he carries Naprosyn on his list. He claims to be on familiar with that medicine. He has a history of seeking narcotic pain relievers. Provided with Naprosyn for home use. Discharged in stable condition. Follow up with PCP in the office. Usual source of medical care as [facility]. Source of Hx: Old records Time of Eval: 01:31 Re-Evaluation/Progress Note: Discussed lab and imaging results and plan to discharge. Patient is amenable to the plan. Return precautions given. All other questions addressed. Counseled Regarding: Diagnosis, Lab results, Need for follow-up, When/why to return to ED Discharge & Departure Primary Impression: Osteoarthritis Disposition: Home Discharge Condition All VS Reviewed: Yes Condition: Stable Patient Instructions: Osteoarthritis (ED) Additional Instructions: Begin Naprosyn twice daily with food. Follow-up with your doctor in the office. [facility] Dante Attestation Portions of this note were transcribed by Jimmy Lee. I, Dr. Franco, personally performed the history, physical exam and medical decision-making; I reviewed and confirmed the accuracy of the information in the transcribed note. Signed by: Dante Servin, 09/16/2016 at 01:32 copies to: [facility] Rufino Franco MD September 16, 2016 00:10 JIMMY LEE September 16, 2016 00:23
[2016-09-16] MEDS ORDERED: NAPR500T PO (01:29)
[2016-09-16 01:48] VITALS: BP 133/87; PULSE 95; RESP 16; O2SAT 96
--- NOTE | 2016-09-16 09:45 | DRSVH ---
PROCEDURE: XR BILAT HAND 3VW INDICATIONS: arthritis TECHNIQUE: 3 views acquired of the right and left hand(s). COMPARISON: None. FINDINGS: Bones and joints: Diffuse interphalangeal degenerative spurring and sclerosis. Subchondral cysts in the middle phalanx of the right middle finger, and at the base of the first metacarpal on the left. t here is also mild bilateral carpal degenerative spurring, and at the first CMC and triscaphe joints B paloma alignment is normal. No periarticular osteopenia. No bony erosions or joint space narrowing. N o fractures or suspicious bony lesions. Soft tissues: No soft tissue calcifications. No focal soft tissue swelling. IMPRESSION: No evidence of erosive arthropathy. Bilateral hand osteoarthritis as above Dictated by: Nitin Conrad M.D. on 09/16/2016 at 9:42 Approved by: Nitin Conrad M.D. on 09/16/2016 at 9:44
== END 2016-09-16 01:46 | disposition home or self-care (01) ==
LOC: SED 21:55
DX: M19.042 Primary osteoarthritis, left hand (principal); E11.9 Type 2 diabetes mellitus without complications; G89.29 Other chronic pain; Z87.891 Personal history of nicotine dependence; Z79.84 Long term (current) use of oral hypoglycemic drugs

== ENCOUNTER 2016-11-02 21:41 | Emergency (ER) | payer MEDICARE, MEDICAID ==
[~2016-11-02] VITALS: Ht 185.4 cm; Wt 79.0 kg
[2016-11-02 22:46] VITALS: BP 129/80; RESP 20; O2SAT 96
--- NOTE | 2016-11-02 23:15 | ED.REPORT ---
HPI-General Illness Date of Service Nov 02, 2016 ED Provider: Marcelo Franco MD Patient is a 65 year old male with a hx of DM and frequent ED visits who presents to the ED complaining of sore throat onset a few weeks ago. He reports that a 6 days ago, he fell asleep and slept for 3 days. He has had a nonproductive cough. He denies diarrhea, chills, or any other symptoms. Nursing Notes Stated Complaint: FEVER,COUGH, SORE THROAT Chief Complaint: ENT & Mouth Nursing Notes Reviewed: Yes Allergies: Coded Allergies: No Known Allergies (Verified , 09/15/16) Scheduled Amoxicillin/Clav K 875-125 mg (Augmentin 875-125 mg) 1 Each Tablet 1 TABLET PO BID Azithromycin (Zithromax) 250 Mg Tablet 250 MG PO DAILY Metformin (Glucophage) 1,000 Mg Tablet 1,000 MG PO BID Pantoprazole DR (Protonix) 40 Mg Tablet 40 MG PO DAILY Propranolol HCl (Propranolol HCl) 20 Mg Tablet 20 MG PO TID Rizatriptan ODT (Maxalt INSURANCE SALES AGENT) 10 Mg Tablet 10 MG PO every 2 hours Scheduled PRN Acetaminophen (Acetaminophen) 500 Mg Tablet 1,000 MG PO Q6H PRN PRN For Pain Hydrocodone-Acetaminophen 7.5-325 mg (Hydrocodone-Acetaminophen 7.5-325 mg) 1 Each Tablet 1 TABLET PO Q6 PRN PRN For Pain Ibuprofen (Ibuprofen) 600 Mg Tablet 600 MG PO TID PRN PRN For Pain Ibuprofen (Ibuprofen) 800 Mg Tablet 800 MG PO TID PRN PRN For Pain Ibuprofen (Ibuprofen) 800 Mg Tablet 800 MG PO QID PRN PRN For Pain Methocarbamol (Methocarbamol) 750 Mg Tablet 750 MG PO BID PRN PRN For Spasm Naproxen (Naprosyn) 500 Mg Tablet 500 MG PO BID PRN PRN For Pain Naproxen (Naprosyn) 500 Mg Tablet 500 MG PO BID PRN PRN For Pain oxyCODONE (oxyCODONE) 5 Mg Capsule 5 MG PO Q4H PRN PRN For Pain General Time Seen by : 23:14 Chief Complaint Sore throat Hx Obtained From: Patient Arrived By: Walk-in Sudden in Onset?: Yes Onset Occurred: More than a week ago... Symptom Duration: Since onset Past Medical History Past Medical History Chronic back pain Frequent ED visits Type II diabetes Reports: Diabetes mellitus Reports: Depression, Migraines Past Surgical History rotator cuff 2x right ankle surgery Reports: Appendectomy, Tonsillectomy Reports: Back/neck surgery Smoking History Former Smoker Social History Alcohol Use: Denies alcohol use Drug Use: Denies drug use Other Social History: Good social support, Local resident Occupation Followed by the [facility] Status Independent Review of Systems Full Review of Systems Constitutional: Reports: Fatigue, Denies: Chills Ears / Nose / Throat: Reports: Sore throat GI: Denies: Diarrhea Complete sys rev & neg: except as marked. Physical Exam Vital Signs Vital Signs Date Time Temp Pulse Resp B/P Pulse Ox O2 Delivery O2 Flow Rate FiO2 11/03/16 01:50 36.8 99 18 128/53 96 Room Air 11/02/16 22:46 36.9 105 20 129/80 96 Room Air Initial VS: Reviewed Head / Eyes: Atraumatic, Normocephalic Respiratory: Breath sounds normal, Clear to auscultation, No respiratory distress Cardiovascular: Regular rate & rhythm, Heart sounds normal, Intact distal pulses Abdomen / GI: Soft, Non-tender Skin: Warm, Dry Neurologic: Alert, Oriented, Nonfocal Psychiatric: Mood/affect normal, Behavior normal, Normal thought content General/Constitutional: Awake, Alert, No acute distress ENT: Airway patent throat slightly erythematous. no exudate Neck: Full range of motion, No adenopathy Interpretation & Diagnostics Lab Results Interpretation Result Diagram: 11/03/164 11/03/164 Test 11/03/16 00:34 White Blood Count 11.4th/mm3 (3.8-10.1) Red Blood Count 4.28mil/mm3 (4.40-5.80) Hemoglobin 14.1g/dL (13.8-17.2) Hematocrit 39.8% (41.0-50.0) Mean Corpuscular Volume 93.0fL (81-100) Mean Corpuscular Hemoglobin 32.9pg (27.0-35.0) Mean Corpuscular Hemoglobin Concent 35.4% (32.0-37.0) Red Cell Distribution Width 14.2% (12.3-15.4) Platelet Count 177bil/L (150-400) Neutrophils (%) (Auto) 61.1% (40-74) Lymphocytes (%) (Auto) 25.8% (14-46) Monocytes (%) (Auto) 8.8% (4-12) Eosinophils (%) (Auto) 3.5% (0-5) Basophils (%) (Auto) 0.5% (0-3) Sodium Level 134mEq/L (134-144) Potassium Level 4.1mEq/L (3.5-5.2) Chloride Level 96mEq/L (97-108) Carbon Dioxide Level 23mmol/L (18-29) Blood Urea Nitrogen 19mg/dL (8-27) Creatinine 0.62mg/dL (0.76-1.27) Estimat Glomerular Filtration Rate 138mL/min (>59) Glucose Level 264mg/dL (60-99) Lactic Acid Level 1.7mmol/L (0.4-2.0) Calcium Level 9.8mg/dL (8.5-10.1) Magnesium Level 1.9mg/dL (1.6-2.6) Total Bilirubin 0.5mg/dL (0.0-1.2) Aspartate Amino Transf (AST/SGOT) 9U/L (0-50) Alanine Aminotransferase (ALT/SGPT) 8U/L (0-44) Alkaline Phosphatase 83U/L (25-160) Total Protein 6.9g/dL (6.4-8.4) Albumin 4.0g/dL (3.4-5.0) X-Ray Chest Interpretation Chest Xray Interpretation: retrocardiac infiltrate L sided developing pneumonia View: AP & lat Interpretation / Wet Read by: Interpret - ED physician Re-Eval/Medical Decision Med Decision/Clinical Course 65-year-old presents after a several week course of a sore throat, culminating in a prolonged spelled sleeping at home. He has not been febrile, has a mild dry cough, and no sputum production. However, his x-ray has bibasilar infiltrates left worse than right with some retrocardiac infiltrate apparent on the lateral. I must suspect aspiration, perhaps associated with his prolonged downtime. He gone with azithromycin and Augmentin. He is ambulatory looking reasonably well. 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 He appears well enough for discharge with stable vitals and good oxygenation. Discharged with the above antibiotics in stable condition. Time of Eval: 01:35 Re-Evaluation/Progress Note: Discussed plan for discharge. Patient understands and agrees with plan. All questions addressed at this time. Counseled Regarding: Diagnosis, Lab results, Need for follow-up, When/why to return to ED Discharge & Departure Primary Impression: Pharyngitis Pharyngitis/tonsillitis etiology: unspecified etiology Qualified Code: J02.9 - Acute pharyngitis, unspecified Additional Impression: Pneumonia Pneumonia type: due to unspecified organism Laterality: left Lung location : unspecified part of lung Qualified Code: J18.9 - Pneumonia, unspecified organism Disposition: Home Discharge Condition All VS Reviewed: Yes Condition: Stable [facility] Scribe Attestation Portions of this note were transcribed by Fahad Rodas. I, Dr. Franco personally performed the history, physical exam and medical decision-making; I reviewed and confirmed the accuracy of the information in the transcribed note. Signed by: Fahad Rodas 11/03/2016, 0140 [facility] Rufino Franco MD Nov 02, 2016 23:14 FAHAD RODAS Nov 02, 2016 23:22
[2016-11-02] MEDS ORDERED: Ketorolac 15 mg/mL Inj IVPUSH ONE (23:25)
[2016-11-02] MEDS ORDERED: 0.9% Sodium Chloride 1,000 ML IV ONE (23:25)
[2016-11-03 00:42] LABS: BASOPHILS % (AUTO) 0.5 % (0-3); EOSINOPHILS % (AUTO) 3.5 % (0-5); MONOCYTES % (AUTO) 8.8 % (4-12); Mean Corpuscular Hemoglobin 32.9 pg (27.0-35.0); NEUTROPHILS % (AUTO) 61.1 % (40-74); Platelet Count 177 bil/L (150-400)
[2016-11-03 01:08] LABS: Magnesium 1.9 mg/dL (1.6-2.6)
[2016-11-03] MEDS ORDERED: Amoxicillin-Clav 875-125 mg Tablet PO ONE (01:35)
[2016-11-03] MEDS ORDERED: AMOX-366 PO (01:36)
[2016-11-03] MEDS ORDERED: ZIT250 PO (01:36)
[2016-11-03 01:50] VITALS: BP 128/53; PULSE 99; RESP 18; O2SAT 96
--- NOTE | 2016-11-03 08:33 | DRSVH ---
PROCEDURE: X-RAY CHEST, TWO VIEWS ([id number]) INDICATIONS: fever TECHNIQUE: 2 views of the chest were acquired. COMPARISON: Merged [facility], CR, XR CHEST 2VW, 01/19/2015, 10:13. FINDINGS: Surgical changes and devices: None. Lungs and pleura: No pleural effusions or pneumothorax. Lungs are clear. Mediastinum: Mediastinal contours are normal. Heart size is normal. Bones and chest wall: No suspicious bony abnormalities. Soft tissues appear unremarkable. IMPRESSION: Bibasilar atelectasis versus aspiration or pneumonia. Correlate clinically. Dictated by: Dieter Joy RRA Interpreted: Susie Rosales MD on 11/03/2016 at 8:29 Transcribed by: LOW on 11/03/2016 at 8:32 Approved by: Susie Rosales MD, PhD on 11/03/2016 at 10:34
== END 2016-11-03 01:50 | disposition home or self-care (01) ==
LOC: SED 21:41
DX: J02.9 Acute pharyngitis, unspecified (principal); J18.9 Pneumonia, unspecified organism; R53.83 Other fatigue; E11.9 Type 2 diabetes mellitus without complications; Z79.84 Long term (current) use of oral hypoglycemic drugs; Z87.891 Personal history of nicotine dependence